=== PATIENT | female | born 1985 | race Caucasian/White ===

== ENCOUNTER 2017-07-03 04:58 | Inpatient (IN) | payer OTHER ==
[2017-07-03] MEDS ORDERED: Sodium Chloride 0.9% 2.5 ML Syringe FLUSH PRN (05:05)
[2017-07-03] MEDS ORDERED: Sodium Chloride 0.9% 10 ML Syringe FLUSH PRN (05:05)
[2017-07-03] MEDS ORDERED: Oxytocin/0.9 % Sodium Chloride 30 UNIT/500 ML BAG IV SCH (05:15)
[2017-07-03] MEDS: Lactated Ringers 1,000 ML IV SCH ×5 (06:06→17:13)
[2017-07-03] MEDS ORDERED: Citric Acid/Sodium Citrate Solution 30 ML Cup PO SCH (07:00)
[2017-07-03] MEDS ORDERED: ceFAZolin 2 GM in Premix Bag 1 BAG IV ONE (07:00)
--- NOTE | 2017-07-03 07:36 | PCM.PREANE ---
Preanesthetic Assessment - Anesthesia/Transfusion/Family Hx Anesthesia History: Prior Anesthesia Reaction (trouble breathing, nausea, low bp ) Other Type of Anesthesia Reaction Comment: N/V with last c/section, "I think it was because I was given to much anesth Transfusion History: No Prior Transfusion(s) - Review of Systems General: No Symptoms Pulmonary: No Symptoms Cardiovascular: No Symptoms Gastrointestinal: No Symptoms Neurological: No Symptoms Other: Reports: None - Physical Assessment NPO Status Date: 07/02/17 Height: 1.65 m Weight: 138.799 kg ASA Class: 2 Mental Status: Alert & Oriented x3 Airway Class: Mallampati = 2 Dentition: Reports: Missing Tooth/Teeth ROM/Head Extension: Full Lungs: Clear to Auscultation, Normal Respiratory Effort Cardiovascular: Regular Rate, Regular Rhythm - Lab Values: Laboratory Last Values WBC 12.62 K/uL (4.0-11.0) H 07/03/17 05:51 RBC 4.12 M/uL (4.30-5.90) L 07/03/17 05:51 Hgb 12.0 g/dL (12.0-16.0) 07/03/17 05:51 Hct 34.7 % (36.0-46.0) L 07/03/17 05:51 MCV 84.2 fL (80.0-98.0) 07/03/17 05:51 MCH 29.1 pg (27.0-32.0) 07/03/17 05:51 MCHC 34.6 g/dL (31.0-37.0) 07/03/17 05:51 RDW Std Deviation 42.4 fl (28.0-62.0) 07/03/17 05:51 RDW Coeff of Feli 14 % (11.0-15.0) 07/03/17 05:51 Plt Count 184 K/uL (150-400) 07/03/17 05:51 MPV 10.80 fL (7.40-12.00) 07/03/17 05:51 Nucleated RBC % 0.0 /100WBC 07/03/17 05:51 Nucleated RBCs # 0 K/uL 07/03/17 05:51 Blood Type A POSITIVE 07/03/17 05:51 Antibody Screen NEGATIVE 07/03/17 05:51 - Allergies Allergies/Adverse Reactions: Allergies Allergy/AdvReac Type Severity Reaction Status Date / Time adhesive tape Allergy Rash Verified 06/27/17 08:31 - Anesthesia Plan Pre-Op Medication Ordered: Antacids (intrathecal duramorph) - Acknowledgements Anesthesia Type Planned: Spinal Pt an Appropriate Candidate for the Planned Anesthesia: Yes Alternatives and Risks of Anesthesia Discussed w Pt/Guardian: Yes Pt/Guardian Understands and Agrees with Anesthesia Plan: Yes PreAnesthesia Questionnaire Respiratory History: Reports: Other (See Below) Other Respiratory History: states had asthma symptoms during her first but none since, currently has cough Gastrointestinal History: Reports: None Genitourinary History: Reports: None 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: Musculoskeletal History: Reports: Fracture Other Musculoskeletal History: hx fx ankle Psychiatric History: Reports: Anxiety, Depression Endocrine/Metabolic History: Reports: Obesity/BMI 30+, Other (See Below) Other Endocrine/Metabolic History: "my doctor says I have gestational diabetes but I dont think I do", currently on no meds for diabetes Dermatologic History: Reports: Psoriasis - Past Surgical History Head Surgeries/Procedures: Reports: None GI Surgical History: Reports: Cholecystectomy Female Surgical History: Reports: Section Other Female Surgeries/Procedures: c/section x2 - SUBSTANCE USE Smoking Status *Q: Current Every Day Smoker Tobacco Use Within Last Twelve Months: No Second Hand Smoke Exposure: Yes Recreational Drug Use History: No - HOME MEDS Home Medications: Home Meds Magnesium 1 tab PO DAILY 06/27/17 [History] PNV95/Ferrous Fumarate/FA [ Vitamins Tablet] 1 tab PO DAILY 06/27/17 [ History] - CURRENT (IN HOUSE) MEDS Current Meds: Current Medications Citric Acid/Sodium Citrate (Bicitra Solution) 30 ml PO .ONCE [facility] Lactated Ringer's (Ringers, Lactated) 1,000 mls @ 500 mls/hr IV .BOLUS [facility] Last Admin: 07/03/17 07:30 Dose: 999 mls/hr Oxytocin/Sodium Chloride (Oxytocin 30 Unit/500 Ml-Ns) 30 unit in 500 mls @ 250 mls/hr IV TITRATE [facility] Sodium Chloride (Saline Flush) 10 ml FLUSH ASDIRECTED PRN PRN Reason: Keep Vein Open Sodium Chloride (Saline Flush) 2.5 ml FLUSH ASDIRECTED PRN PRN Reason: Keep Vein Open Discontinued Medications Cefazolin Sodium/Dextrose 2 gm (/ Premix) 50 mls @ 100 mls/hr IV ONETIME ONE Stop: 07/03/17 07:29
[2017-07-03] MEDS ORDERED: Morphine PF 10 MG/10 ML SDV ONE (07:37)
[2017-07-03] MEDS ORDERED: Ondansetron 4 MG/2 ML SDV ONE ×2 (07:37→09:12)
[2017-07-03] MEDS ORDERED: ePHEDrine 50 MG/ML SDV ONE (07:38)
[2017-07-03] MEDS ORDERED: Oxytocin/0.9 % Sodium Chloride 30 UNIT/500 ML BAG ONE (07:44)
[2017-07-03] MEDS ORDERED: ceFAZolin 1 GM Vial ONE (08:10)
[2017-07-03] MEDS ORDERED: Nalbuphine 10 MG/1 ML Vial IVPUSH PRN (08:22)
[2017-07-03] MEDS ORDERED: Acetaminophen/oxyCODONE 325-5 MG Tab PO PRN ×2 (08:22→10:07)
[2017-07-03] MEDS ORDERED: fentaNYL 100 MCG/2 ML SDV IVPUSH PRN (08:22)
[2017-07-03] MEDS ORDERED: fentaNYL 100 MCG/2 ML SDV ONE ×2 (09:02→09:33)
[2017-07-03] MEDS ORDERED: Midazolam 1 MG/ML 2 ML SDV ONE (09:03)
[2017-07-03] MEDS ORDERED: diphenhydrAMINE 50 MG/ML SDV ONE (09:11)
[2017-07-03] MEDS ORDERED: Bisacodyl 10 MG Supp RECTAL PRN (10:07)
[2017-07-03] MEDS ORDERED: Lanolin 100% Cream 7 GM Tube TOP PRN (10:07)
[2017-07-03] MEDS ORDERED: Ondansetron 4 MG/2 ML SDV IV PRN (10:07)
[2017-07-03] MEDS ORDERED: diphenhydrAMINE 50 MG/ML SDV IVPUSH PRN (10:07)
--- NOTE | 2017-07-03 10:12 | PCM.POSTAN ---
POST ANESTHESIA ASSESSMENT - MENTAL STATUS Mental Status: Alert, Oriented - RESPIRATORY Respiratory Status: Respiratory Rate WNL, Airway Patent, O2 Saturation Stable - CARDIOVASCULAR CV Status: Pulse Rate WNL, Blood Pressure Stable - GASTROINTESTINAL GI Status: No Symptoms - POST OP HYDRATION Hydration Status: Adequate & Stable
[2017-07-03] MEDS: Ketorolac 30 MG/ML SDV IVPUSH SCH ×3 (10:21→22:39)
--- NOTE | 2017-07-03 11:21 | PCM.OPNOTE ---
- General Post-Op/Procedure Note Date of Surgery/Procedure: 07/03/17 Operative Procedure(s): Tertiary Lower transverse Findings: Live female delivered at 842am , 9/9 ,Weight 3770g , 3VC noted Normal right and left tubes and ovaries Pre Op Diagnosis: 32 yo @ 39w3d. GDMA non complaint to Fingerstick. Morbid obesity Post-Op Diagnosis: 32 yo @ 39w3d. GDMA non complaint to Fingerstick. Morbid obesity Anesthesia Technique: Spinal Primary Surgeon: Nina Ramos Secondary Surgeon: Robyn Jeffries Anesthesia Provider: Clyde Fermin Radic Pathology: Placenta Fluid Replacement, Intraop: 2,100 Output, Urine Amount: 300 EBL in mLs: 600 Complications: None Condition: Good Free Text/Narrative:: Intake & Output 07/02/17 07/03/17 07/03/17 22:59 06:59 14:59 Intake Total 2900 Output Total 90 Balance 2810
--- NOTE | 2017-07-03 13:37 | OR ---
DATE OF PROCEDURE: 07/03/2017 SURGEON: PAM PINA UNIT SECY SURGEON: DR SMALLWOOD PROCEDURE: Tertiary lower segment section ANAESTHESIA; Spinal PREOPERATIVE DIAGNOSES: A 32-year-old, G3, P 2-0-0-2 at 39 weeks 3 days for tertiary section, gestational diabetes, morbid obesity and smoker. POSTOPERATIVE DIAGNOSES: A 32-year-old, G3, P 2-0-0-2 at 39 weeks 3 days for tertiary section, gestational diabetes, morbid obesity, smoker. EBL: 600. IV FLUID: 2100. URINE OUTPUT:300 clear fluid. FINDINGS: A live female delivered at 08:42 a.m. score of 9 and 9. Weight was 3770 g. 3-vessel cord noted. Normal uterus tubes and ovaries BRIEF HISTORY: The patient is a 32-year-old G3, P 2-0-0-2 who was receiving care at the [facility]. She was diagnosed with gestational diabetes, however, did not bring any fingersticks for appointments. She said her fingersticks were normal at home. The patient was scheduled for a tertiary . PROCEDURE IN DETAIL: The patient was taken to the operating room where spinal anesthesia was performed without difficulty. The patient was prepared and draped in the normal sterile fashion in the dorsal supine position with a leftward tilt. A Transverse skin incision was made in the site of the previous incision and the incision was carried down to the fascia with the Bovie. The fascia was then incised and excised laterally with the Amado scissors and the fascia was from the rectus muscle, which was very attenuated superiorly and also inferiorly. The rectus muscle was dissected in the midline down to the level of the pubic symphysis. The rectus muscle was then tented up to allow dissection of the muscle in the midline to enter into the peritoneum. The peritoneum was entered into with an opening created by the Metzenbaum scissors. The incision made was then extended upwards and laterally with manual traction. The abdominal survey revealed no adhesions, so the Mauro retractor was placed in. The bladder reflection was then created and the uterine incision was made which was then extended manually upwards and downwards. The fetus was found in cephalic position was brought to the incision. With fundal pressure, the anterior and posterior shoulder was delivered followed by the baby's body. The cord was then clamped, cut, and was handed over to the awaiting service correspondent. The placenta was then removed and then the uterine incision was sutured with 0 Vicryl and an imbricating incision was also done. Hemostasis was noted at the incision after suturing and also noted at the bladder base. Normal uterus, tubes, and ovary were also noted. The gutters were cleaned. The peritoneum was then sutured and then the fascia was then closed. The subcutaneous fat was closed. The skin was closed with 3-0 Monocryl on a Shin needle. The patient tolerated the procedure well. All instrument and pad count were correct x2. The patient was taken to the recovery room in stable condition. MORENO SHARMA /[id number] MTDD
[2017-07-03] MEDS ORDERED: Metoclopramide 10 MG/2 ML SDV IVPUSH PRN (18:46)
[2017-07-03] MEDS ORDERED: Promethazine 25 MG/ML SDV IM PRN (18:53)
[2017-07-03] MEDS: Nicotine 21 MG/24 Hr Patch TRDERM SCH (20:36)
[2017-07-03] MEDS: Docusate Sodium 100 MG Cap PO SCH (20:36)
[2017-07-03] MEDS: Dextrose 5%-Lactated Ringers 1,000 ML IV SCH (20:52)
[2017-07-04] MEDS: Dextrose 5%-Lactated Ringers 1,000 ML IV SCH (03:08)
[2017-07-04] MEDS: Ketorolac 30 MG/ML SDV IVPUSH SCH ×2 (04:30→10:24)
[2017-07-04 07:06] LABS: CHLORIDE,CL 107 mmol/L (98-110); SODIUM,NA 136 mmol/L (136-146)
--- NOTE | 2017-07-04 08:18 | PCM48HPAN ---
Post Anesthesia Note - EVALUATION WITHIN 48HRS OF ANESTHETIC Vital Signs in Normal Range: Yes Patient Participated in Evaluation: Yes Respiratory Function Stable: Yes Airway Patent: Yes Cardiovascular Function Stable: Yes Hydration Status Stable: Yes Pain Control Satisfactory: Yes Nausea and Vomiting Control Satisfactory: Yes Mental Status Recovered: Yes - COMMENTS/OBSERVATIONS Free Text/Narrative:: full sensation legs bilaterally
[2017-07-04] MEDS: guaiFENesin 100 MG/5 ML Soln 10 ML UD Cup PO SCH ×3 (08:45→21:51)
--- NOTE | 2017-07-04 08:52 | PCM.PNPP ---
- General Info Date of Service: 07/04/17 Admission Dx/Problem (Free Text): 32 yo s/p Teritary POD 0 Subjective Update: Patient seen at bedside , had episode of vomiting last night after regular diet. she was placed NPO overnight. Met patient eating this morning. she has ambulated and is passing gas [place] removed at 5am. has not voided Functional Status: Reports: Pain Controlled, Ambulating - Review of Systems General: Reports: No Symptoms HEENT: Reports: No Symptoms Pulmonary: Reports: No Symptoms Cardiovascular: Reports: No Symptoms Gastrointestinal: Reports: No Symptoms Genitourinary: Reports: No Symptoms Musculoskeletal: Reports: No Symptoms Skin: Reports: No Symptoms Neurological: Reports: No Symptoms Psychiatric: Reports: No Symptoms - General Info Date of Service: 07/04/17 - Patient Data Vital Signs - Most Recent: Last Vital Signs Temp 36.4 C 07/04/17 04:00 Pulse 77 07/04/17 04:00 Resp 20 07/04/17 07:00 BP 135/71 07/04/17 04:00 Pulse Ox 96 07/04/17 07:00 Weight - Most Recent: 138.799 kg I&O - Last 24 Hours: Intake & Output 07/03/17 07/04/17 07/04/17 22:59 06:59 14:59 Intake Total 1233 Output Total 150 1550 Balance -150 -317 Lab Results - Last 24 Hours: Laboratory Results - last 24 hr 07/04/17 07/04/17 Range/Units 06:40 06:40 WBC 9.75 (4.0-11.0) K/uL RBC 3.55 L (4.30-5.90) M/uL Hgb 10.4 L (12.0-16.0) g/dL Hct 30.4 L (36.0-46.0) % MCV 85.6 (80.0-98.0) fL MCH 29.3 (27.0-32.0) pg MCHC 34.2 (31.0-37.0) g/dL RDW Std Deviation 43.4 (28.0-62.0) fl RDW Coeff of Feli 14 (11.0-15.0) % Plt Count 148 L (150-400) K/uL MPV 10.30 (7.40-12.00) fL Neut % (Auto) 71.0 (48.0-80.0) % Lymph % (Auto) 19.6 (16.0-40.0) % Pender % (Auto) 7.5 (0.0-15.0) % Eos % (Auto) 1.7 (0.0-7.0) % Baso % (Auto) 0.2 (0.0-1.5) % Neut # (Auto) 6.9 H (1.4-5.7) K/uL Lymph # (Auto) 1.9 (0.6-2.4) K/uL Pender # (Auto) 0.7 (0.0-0.8) K/uL Eos # (Auto) 0.2 (0.0-0.7) K/uL Baso # (Auto) 0.0 (0.0-0.1) K/uL Nucleated RBC % 0.0 /100WBC Nucleated RBCs # 0 K/uL Sodium 136 (136-146) mmol/L Potassium 4.0 (3.5-5.1) mmol/L Chloride 107 (98-110) mmol/L Carbon Dioxide 22 (21-31) mmol/L BUN 6 (6.0-23.0) mg/dL Creatinine 0.5 L (0.6-1.5) mg/dL Est Cr Clr Drug Dosing 146.70 mL/min Estimated GFR (MDRD) > 60.0 ml/min Glucose 110 (60-110) mg/dL Calcium 8.0 L (8.8-10.8) mg/dL Med Orders - Current: Current Medications Bisacodyl (Dulcolax) 10 mg RECTAL .ONCE PRN PRN Reason: Constipation Citric Acid/Sodium Citrate (Bicitra Solution) 30 ml PO .ONCE [facility] Last Admin: 07/03/17 07:39 Dose: 30 ml Diphenhydramine HCl (Benadryl) 25 mg IVPUSH Q6H PRN PRN Reason: Itching or Nausea Last Admin: 07/03/17 20:51 Dose: 25 mg Docusate Sodium (Colace) 100 mg PO BID [facility] Last Admin: 07/03/17 20:36 Dose: 100 mg Emollient Ointment (Lansinoh Hpa) 0 gm TOP ASDIRECTED PRN PRN Reason: Sore Nipples Enoxaparin Sodium (Lovenox) 40 mg SUBCUT Q24H [facility] Guaifenesin (Robitussin) 200 mg PO Q6H [facility] Lactated Ringer's (Ringers, Lactated) 1,000 mls @ 500 mls/hr IV .BOLUS [facility] Last Admin: 07/03/17 07:54 Dose: 999 mls/hr Oxytocin/Sodium Chloride (Oxytocin 30 Unit/500 Ml-Ns) 30 unit in 500 mls @ 250 mls/hr IV TITRATE [facility] Lactated Ringer's (Ringers, Lactated) 1,000 mls @ 125 mls/hr IV ASDIRECTED [facility] Last Admin: 07/03/17 17:13 Dose: 125 mls/hr Dextrose/Lactated Ringer's (Dextrose 5%-Lactated Ringers) 1,000 mls @ 166 mls/ hr IV ASDIRECTED [facility] Last Admin: 07/04/17 03:08 Dose: 166 mls/hr Ibuprofen (Motrin) 800 mg PO Q8H PRN PRN Reason: mild pain or fever Ketorolac Tromethamine (Toradol) 30 mg IVPUSH Q6H [facility] Stop: 07/04/17 10:16 Last Admin: 07/04/17 04:30 Dose: 30 mg Metoclopramide HCl (Reglan) 10 mg IVPUSH Q8H PRN PRN Reason: Nausea Nicotine (Habitrol) 21 mg TRDERM DAILY [facility] Last Admin: 07/03/17 20:36 Dose: 21 mg Ondansetron HCl (Zofran) 4 mg IV Q4H PRN PRN Reason: Nausea/Vomiting Last Admin: 07/03/17 13:31 Dose: 4 mg Oxycodone/Acetaminophen (Percocet 325-5 Mg) 1 tab PO ONETIME PRN PRN Reason: Pain (moderate 4-6) Oxycodone/Acetaminophen (Percocet 325-5 Mg) 1 tab PO Q4H PRN PRN Reason: Pain (moderate 4-6) Oxycodone/Acetaminophen (Percocet 325-5 Mg) 2 tab PO Q4H PRN PRN Reason: Pain (moderate 4-6) Promethazine HCl (Phenergan) 25 mg IM Q8H PRN PRN Reason: Insomnia Sodium Chloride (Saline Flush) 10 ml FLUSH ASDIRECTED PRN PRN Reason: Keep Vein Open Sodium Chloride (Saline Flush) 2.5 ml FLUSH ASDIRECTED PRN PRN Reason: Keep Vein Open Discontinued Medications Cefazolin Sodium (Ancef) Confirm Administered Dose 1 gm .ROUTE .STK-MED ONE Stop: 07/03/17 08:11 Diphenhydramine HCl (Benadryl) Confirm Administered Dose 50 mg .ROUTE .STK-MED ONE Stop: 07/03/17 09:12 Ephedrine Sulfate (Ephedrine Sulfate) Confirm Administered Dose 50 mg .ROUTE .STK-MED ONE Stop: 07/03/17 07:39 Fentanyl (Sublimaze) 50 mcg IVPUSH Q5M PRN PRN Reason: Pain (severe 7-10) Stop: 07/04/17 08:22 Last Admin: 07/03/17 10:01 Dose: 50 mcg Fentanyl (Sublimaze) Confirm Administered Dose 100 mcg .ROUTE .STK-MED ONE Stop: 07/03/17 09:03 Fentanyl (Sublimaze) Confirm Administered Dose 100 mcg .ROUTE .STK-MED ONE Stop: 07/03/17 09:34 Cefazolin Sodium/Dextrose 2 gm (/ Premix) 50 mls @ 100 mls/hr IV ONETIME ONE Stop: 07/03/17 07:29 Last Admin: 07/03/17 07:37 Dose: 100 mls/hr Oxytocin/Sodium Chloride (Oxytocin 30 Unit/500 Ml-Ns) Confirm Administered Dose 30 unit in 500 mls @ as directed .ROUTE .STK-MED ONE Stop: 07/03/17 07:45 Last Admin: 07/03/17 20:41 Dose: Not Given Midazolam HCl (Versed 1 Mg/Ml) Confirm Administered Dose 2 mg .ROUTE .STK-MED ONE Stop: 07/03/17 09:04 Morphine Sulfate (Duramorph Pf) Confirm Administered Dose 10 mg .ROUTE .STK-MED ONE Stop: 07/03/17 07:38 Nalbuphine HCl (Nubain) 2.5 mg IVPUSH Q3H PRN PRN Reason: Pruritis Stop: 07/04/17 08:23 Ondansetron HCl (Zofran) Confirm Administered Dose 4 mg .ROUTE .STK-MED ONE Stop: 07/03/17 07:38 Ondansetron HCl (Zofran) Confirm Administered Dose 4 mg .ROUTE .STK-MED ONE Stop: 07/03/17 09:13 - Interaction Disposition, : in Room with Family Support Person: - Recovery Exam Fundal Tone: Firm Fundal Level: 1 Fingerbreadths Below Umbilicus Fundal Placement: Midline Lochia Amount: Scant Lochia Color: Rubra/Red Perineum Description: Intact, Minimal Bruising/Swelling Episiotomy/Laceration: None Bladder Status: Indwelling Catheter in Place Urinary Elimination: Indwelling Catheter - Exam General: Alert, Oriented Lungs: Clear to Auscultation, Wheezing (mild wheezing noted ) GI/Abdominal Exam: Other (reduced bowel sounds ) Extremities: Normal Inspection Wound/Incisions: Dressing Dry and Intact - Problem List & Annotations (1) delivery delivered SNOMED Code(s): 613685807 Code(s): O82 - ENCOUNTER FOR DELIVERY WITHOUT INDICATION Status: Acute Current Visit: Yes - Problem List Review Problem List Initiated/Reviewed/Updated: Yes - My Orders Last 24 Hours: My Active Orders 07/03/17 10:07 Notify Provider Intake and Out [RC] ASDIRECTED Acetaminophen/oxyCODONE [Percocet 325-5 MG] 1 tab PO Q4H PRN Acetaminophen/oxyCODONE [Percocet 325-5 MG] 2 tab PO Q4H PRN Bisacodyl [Dulcolax] 10 mg RECTAL .ONCE PRN Ibuprofen [Motrin] 800 mg PO Q8H PRN Lanolin [Lansinoh HPA] See Dose Instructions TOP ASDIRECTED PRN Ondansetron [Zofran] 4 mg IV Q4H PRN diphenhydrAMINE [Benadryl] 25 mg IVPUSH Q6H PRN 07/03/17 10:08 Patient Status [ADT] Routine Ambulate [RC] PER UNIT ROUTINE Antiembolic Devices [RC] PER UNIT ROUTINE Communication Order [RC] PER UNIT ROUTINE Communication Order [RC] PER UNIT ROUTINE Communication Order [RC] Per Unit Routine May Shower [RC] ASDIRECTED RT Incentive Spirometry [RC] Q2HWA Vital Signs [RC] PER UNIT ROUTINE Assess Lochia [WOMSER] Per Unit Routine Assess Uterine Involution [WOMSER] Per Unit Routine Breast Pump [WOMSER] Per Unit Routine Peripheral IV Discontinue [OM.PC] Routine Sequential Compression Device [OM.PC] Per Unit Routine 07/03/17 10:15 Ketorolac [Toradol] 30 mg IVPUSH Q6H Lactated Ringers [Ringers, Lactated] 1,000 ml IV ASDIRECTED 07/03/17 18:45 Nicotine [Habitrol] 21 mg TRDERM DAILY 07/03/17 18:46 Metoclopramide [Reglan] 10 mg IVPUSH Q8H PRN 07/03/17 18:53 Promethazine [Phenergan] 25 mg IM Q8H PRN 07/03/17 19:00 Dextrose 5%-Lactated Ringers 1,000 ml IV ASDIRECTED 07/03/17 21:00 Docusate Sodium [Colace] 100 mg PO BID 07/03/17 22:00 Notify Provider Vital Signs [RC] ASDIRECTED 07/03/17 Dinner Regular Diet [DIET] 07/04/17 08:45 Enoxaparin [Lovenox] 40 mg SUBCUT Q24H guaiFENesin [Robitussin] 200 mg PO Q6H - Assessment Assessment:: 32 yo P3 P0D 1 Morbid obesity Minimal lochia Smoker Emesis last night - Plan Plan:: Lovenox IVF Reglan Robitussion Encourage incentive spirometry Pain control as needed Watch for Voiding Encourage ambulation
[2017-07-04] MEDS: Enoxaparin 40 MG/0.4 ML Syringe SUBCUT SCH (10:22)
[2017-07-04] MEDS: Acetaminophen/oxyCODONE 325-5 MG Tab PO PRN (14:21)
[2017-07-04] MEDS: Ibuprofen 800 MG Tab PO PRN (17:38)
[2017-07-04] MEDS: Nicotine 21 MG/24 Hr Patch TRDERM SCH (19:04)
[2017-07-04] MEDS ORDERED: hydrOXYzine Pamoate 25 MG Cap PO PRN (21:33)
[2017-07-04] MEDS: Docusate Sodium 100 MG Cap PO SCH ×2 (21:50→21:51)
[2017-07-05] MEDS: Ibuprofen 800 MG Tab PO PRN (06:48)
[2017-07-05] MEDS: guaiFENesin 100 MG/5 ML Soln 10 ML UD Cup PO SCH ×2 (08:04→09:07)
[2017-07-05] MEDS: Docusate Sodium 100 MG Cap PO SCH (09:07)
[2017-07-05] MEDS: Enoxaparin 40 MG/0.4 ML Syringe SUBCUT SCH (09:07)
[2017-07-05] MEDS: Acetaminophen/oxyCODONE 325-5 MG Tab PO PRN (09:08)
[2017-07-05] MEDS: Nicotine 21 MG/24 Hr Patch TRDERM SCH (09:13)
--- NOTE | 2017-07-05 09:28 | PCM.PNPP ---
- General Info Date of Service: 07/05/17 Admission Dx/Problem (Free Text): 32 yo s/p Teritary POD 2 Subjective Update: Patient seen at bedside , denies any complains today tolerating regular diet , ambulating , voiding , passed gas Functional Status: Reports: Pain Controlled, Tolerating Diet, Ambulating, Urinating - Review of Systems General: Reports: No Symptoms HEENT: Reports: No Symptoms Pulmonary: Reports: No Symptoms Cardiovascular: Reports: No Symptoms Gastrointestinal: Reports: No Symptoms Genitourinary: Reports: No Symptoms Musculoskeletal: Reports: No Symptoms Skin: Reports: No Symptoms - General Info Date of Service: 07/05/17 - Patient Data Vital Signs - Most Recent: Last Vital Signs Temp 36.4 C 07/05/17 06:00 Pulse 82 07/05/17 06:00 Resp 15 07/05/17 06:00 BP 134/82 07/05/17 06:00 Pulse Ox 97 07/05/17 06:00 Weight - Most Recent: 138.799 kg Med Orders - Current: Current Medications Bisacodyl (Dulcolax) 10 mg RECTAL .ONCE PRN PRN Reason: Constipation Citric Acid/Sodium Citrate (Bicitra Solution) 30 ml PO .ONCE [facility] Last Admin: 07/03/17 07:39 Dose: 30 ml Diphenhydramine HCl (Benadryl) 25 mg IVPUSH Q6H PRN PRN Reason: Itching or Nausea Last Admin: 07/03/17 20:51 Dose: 25 mg Docusate Sodium (Colace) 100 mg PO BID [facility] Last Admin: 07/05/17 09:07 Dose: 100 mg Emollient Ointment (Lansinoh Hpa) 0 gm TOP ASDIRECTED PRN PRN Reason: Sore Nipples Enoxaparin Sodium (Lovenox) 40 mg SUBCUT Q24H [facility] Last Admin: 07/05/17 09:07 Dose: 40 mg Guaifenesin (Robitussin) 200 mg PO Q6H [facility] Last Admin: 07/05/17 09:07 Dose: 200 mg Hydroxyzine Pamoate (Vistaril) 50 mg PO BEDTIME PRN PRN Reason: Insomnia Last Admin: 07/04/17 21:52 Dose: 50 mg Lactated Ringer's (Ringers, Lactated) 1,000 mls @ 500 mls/hr IV .BOLUS [facility] Last Admin: 07/03/17 07:54 Dose: 999 mls/hr Oxytocin/Sodium Chloride (Oxytocin 30 Unit/500 Ml-Ns) 30 unit in 500 mls @ 250 mls/hr IV TITRATE [facility] Lactated Ringer's (Ringers, Lactated) 1,000 mls @ 125 mls/hr IV ASDIRECTED [facility] Last Admin: 07/03/17 17:13 Dose: 125 mls/hr Dextrose/Lactated Ringer's (Dextrose 5%-Lactated Ringers) 1,000 mls @ 166 mls/ hr IV ASDIRECTED [facility] Last Admin: 07/04/17 03:08 Dose: 166 mls/hr Ibuprofen (Motrin) 800 mg PO Q8H PRN PRN Reason: mild pain or fever Last Admin: 07/05/17 06:48 Dose: 800 mg Metoclopramide HCl (Reglan) 10 mg IVPUSH Q8H PRN PRN Reason: Nausea Last Admin: 07/04/17 08:48 Dose: 10 mg Nicotine (Habitrol) 21 mg TRDERM DAILY [facility] Last Admin: 07/05/17 09:13 Dose: Not Given Ondansetron HCl (Zofran) 4 mg IV Q4H PRN PRN Reason: Nausea/Vomiting Last Admin: 07/03/17 13:31 Dose: 4 mg Oxycodone/Acetaminophen (Percocet 325-5 Mg) 1 tab PO ONETIME PRN PRN Reason: Pain (moderate 4-6) Oxycodone/Acetaminophen (Percocet 325-5 Mg) 1 tab PO Q4H PRN PRN Reason: Pain (moderate 4-6) Last Admin: 07/05/17 09:08 Dose: 1 tab Oxycodone/Acetaminophen (Percocet 325-5 Mg) 2 tab PO Q4H PRN PRN Reason: Pain (moderate 4-6) Promethazine HCl (Phenergan) 25 mg IM Q8H PRN PRN Reason: Insomnia Sodium Chloride (Saline Flush) 10 ml FLUSH ASDIRECTED PRN PRN Reason: Keep Vein Open Sodium Chloride (Saline Flush) 2.5 ml FLUSH ASDIRECTED PRN PRN Reason: Keep Vein Open Discontinued Medications Cefazolin Sodium (Ancef) Confirm Administered Dose 1 gm .ROUTE .STK-MED ONE Stop: 07/03/17 08:11 Diphenhydramine HCl (Benadryl) Confirm Administered Dose 50 mg .ROUTE .STK-MED ONE Stop: 07/03/17 09:12 Ephedrine Sulfate (Ephedrine Sulfate) Confirm Administered Dose 50 mg .ROUTE .STK-MED ONE Stop: 07/03/17 07:39 Fentanyl (Sublimaze) 50 mcg IVPUSH Q5M PRN PRN Reason: Pain (severe 7-10) Stop: 07/04/17 08:22 Last Admin: 07/03/17 10:01 Dose: 50 mcg Fentanyl (Sublimaze) Confirm Administered Dose 100 mcg .ROUTE .STK-MED ONE Stop: 07/03/17 09:03 Fentanyl (Sublimaze) Confirm Administered Dose 100 mcg .ROUTE .STK-MED ONE Stop: 07/03/17 09:34 Cefazolin Sodium/Dextrose 2 gm (/ Premix) 50 mls @ 100 mls/hr IV ONETIME ONE Stop: 07/03/17 07:29 Last Admin: 07/03/17 07:37 Dose: 100 mls/hr Oxytocin/Sodium Chloride (Oxytocin 30 Unit/500 Ml-Ns) Confirm Administered Dose 30 unit in 500 mls @ as directed .ROUTE .STK-MED ONE Stop: 07/03/17 07:45 Last Admin: 07/03/17 20:41 Dose: Not Given Ketorolac Tromethamine (Toradol) 30 mg IVPUSH Q6H [facility] Stop: 07/04/17 10:16 Last Admin: 07/04/17 10:24 Dose: 30 mg Midazolam HCl (Versed 1 Mg/Ml) Confirm Administered Dose 2 mg .ROUTE .STK-MED ONE Stop: 07/03/17 09:04 Morphine Sulfate (Duramorph Pf) Confirm Administered Dose 10 mg .ROUTE .STK-MED ONE Stop: 07/03/17 07:38 Nalbuphine HCl (Nubain) 2.5 mg IVPUSH Q3H PRN PRN Reason: Pruritis Stop: 07/04/17 08:23 Ondansetron HCl (Zofran) Confirm Administered Dose 4 mg .ROUTE .STK-MED ONE Stop: 07/03/17 07:38 Ondansetron HCl (Zofran) Confirm Administered Dose 4 mg .ROUTE .STK-MED ONE Stop: 07/03/17 09:13 - Interaction Infant Disposition, : in Room with Family Support Person: - Recovery Exam Fundal Tone: Firm Fundal Level: 2 Fingerbreadths Below Umbilicus Fundal Placement: Midline Lochia Amount: Scant Lochia Color: Rubra/Red Perineum Description: Intact, Minimal Bruising/Swelling Episiotomy/Laceration: None Bladder Status: Voiding Urinary Elimination: Voided - Exam General: Alert Lungs: Clear to Auscultation Cardiovascular: Regular Rate GI/Abdominal Exam: Normal Bowel Sounds Extremities: Normal Inspection Wound/Incisions: Dressing Dry and Intact, No Drainage - Problem List & Annotations (1) delivery delivered SNOMED Code(s): 180432340 Code(s): O82 - ENCOUNTER FOR DELIVERY WITHOUT INDICATION Status: Acute Current Visit: Yes - Problem List Review Problem List Initiated/Reviewed/Updated: Yes - My Orders Last 24 Hours: My Active Orders 07/04/17 08:45 Enoxaparin [Lovenox] 40 mg SUBCUT Q24H guaiFENesin [Robitussin] 200 mg PO Q6H 07/05/17 09:20 Ready for Discharge [RC] PER UNIT ROUTINE - Assessment Assessment:: 32 yo P3 P0D 2 Morbid obesity Minimal lochia Smoker - Plan Plan:: Discharge home pain control as needed Encourage ambulation
[2017-07-05] MEDS ORDERED: Measles, Mumps & Rubella Vaccine 0.5 ML SDV SUBCUT ONE (10:47)
== END 2017-07-05 11:40 | disposition home or self-care (01) | DRG 765 ==
LOC: MW.OB 05:04
PROVIDERS: ADMIT Obstetrics & Gynecology; ATTEND Obstetrics & Gynecology
PROC: 10D00Z1 Extraction of Products of Conception, Low, Open Approach (ICD-10-PCS; principal; 2017-07-03)
DX: O24.420 Gestational diabetes mellitus in childbirth, diet controlled (principal); Z68.43 Body mass index [BMI] 50.0-59.9, adult; O99.214 Obesity complicating childbirth; E66.01 Morbid (severe) obesity due to excess calories; O99.334 Smoking (tobacco) complicating childbirth; Z3A.39 39 weeks gestation of pregnancy; Z37.0 Single live birth
CPT/HCPCS: 01961; 36415; 59025; 80048; 85025; 85027; 86850; 86900; 86901; 88307; 90471; 90707; A9270-GY; J0690; J1200; J1650; J1885; J2250; J2270; J2405; J2765; J3010; J7042; J7120